=== PATIENT | male | born 1940 | race Caucasian/White ===

== ENCOUNTER 2017-07-21 09:31 | Emergency (ER) | payer MEDICARE, OTHER ==
[~2017-07-21] VITALS: Ht 182.9 cm; Wt 122.5 kg
[~2017-07-21 09:31] MED LIST: AMLO10 PO; ASPI325 PO; ATOR10 PO; ATOR20 PO; BENA20 PO; Colace100 MG; DOCU100 PO; ENOX40I SC; GLIP10 PO; HYDACE10B PO; Humalog100 UNIT/1; IBUP800; INSUASPI SC; LAVAP17G PO; LEVFLO500; LISI20 PO; LOSARTAN-HCTZ1 EAC1 PO; METF500 PO; METO25ER PO; METO50ER PO; MORP15ER; Novolog100 UNIT/2 SC; OMEP20ER PO; OXYC5 PO; PIOG45 PO; Senokotxtra17.2 MG PO; WARF4 PO
[2017-07-21 10:33] LABS: BASOPHILS ABSOLUTE AUTO 0.05 K/mm3 (0.00-0.23); BASOPHILS PERCENT AUTO 1 % (0-2); EOSINOPHILS ABSOLUTE AUTO 0.21 K/mm3 (0.00-0.68); EOSINOPHILS PERCENT AUTO 3 % (0-6); Hematocrit 40.9 % (37.0-53.0); Hemoglobin 13.9 g/dL (13.5-17.5); IMMATURE GRAN ABSOLUTE AUTO 0.01 K/mm3 (0.00-0.10); IMMATURE GRAN PERCENT AUTO 0 % (0-1); LYMPHOCYTES PERCENT AUTO 22 % (21-46); MONOCYTES PERCENT AUTO 10 % (4-13); Mean Corpuscular HGB 30.8 pg (26.0-34.0); Mean Corpuscular Volume 91 fL (80-100); Mean Platelet Volume 10.5 fL (9.1-12.4); NEUTROPHILS PERCENT AUTO 65 % (41-73); Platelet Count 221 K/mm3 (150-400); RDW Standard Deviation 42.8 fL (35.1-46.3); Red Blood Cell Count 4.52 M/mm3 (4.30-5.90); White Blood Cell Count 7.37 K/mm3 (4.00-11.30)
[2017-07-21 10:53] LABS: Alanine Aminotransfer (ALT/SGP 38 U/L (12-78); Albumin, Blood 3.7 g/dL (3.4-5.0); Alk Phos 94 U/L (50-136); Anion Gap 6 mmol/L (6-16); Aspartate Aminotrans (AST/SGOT 21 U/L (12-37); Bilirubin, Total 0.5 mg/dL (0.1-1.0); Blood Urea Nitrogen 12 mg/dL (8-24); Bun/Creatinine Ratio 16.7 (12.0-20.0); CO2, Blood 28 mmol/L (21-32); Calcium, Blood 8.8 mg/dL (8.5-10.1); Chloride, Blood 107 mmol/L (98-108); Creatinine, Blood 0.72 mg/dL (0.60-1.20); Globulin, Blood 3.7 g/dL (2.2-4.0); Glomerular Filtration Rate >60 (60-); Glucose, Blood 90 mg/dL (70-99); Potassium, Blood 3.6 mmol/L (3.5-5.5); Sodium, Blood 141 mmol/L (136-145); Total Protein, Blood 7.4 g/dL (6.4-8.2)
[2017-07-21 11:01] LABS: Troponin I <0.015 ng/mL (0.000-0.040)
[2017-07-21] MEDS ORDERED: HUMULIN 70100 UNIT/2 SC ×2 (11:10→11:11)
[2017-07-21] MEDS ORDERED: LOSARTAN-HCTZ1 EAC1 PO (11:12)
[2017-07-21] MEDS ORDERED: FURO40 PO (11:12)
[2018-02-07] MEDS ORDERED: METF500C PO (11:05)
[2018-02-07] MEDS ORDERED: ASPI325 PO (11:05)
[2018-02-07] MEDS ORDERED: TUMS300 MG PO (11:06)
== END 2017-07-21 11:30 | disposition home or self-care (01) ==
LOC: ER 09:31
PROVIDERS: Internal Medicine
DX: R07.89 Other chest pain (principal); Z79.899 Other long term (current) drug therapy; Z79.4 Long term (current) use of insulin; E11.9 Type 2 diabetes mellitus without complications; I10 Essential (primary) hypertension; Z86.73 Personal history of transient ischemic attack (TIA), and cerebral infarction without residual deficits
CPT/HCPCS: 36415; 71046; 80053; 83880; 84484; 85025; 93005; 93010; 99284

== ENCOUNTER → 2017-08-25 | Outpatient (CLI) | payer MEDICARE, OTHER ==
[~2017-08-25] MED LIST changes: +FURO40 PO; +HUMULIN 70100 UNIT/2 SC; +METF500C PO; +TUMS300 MG PO
== END | disposition home or self-care (01) ==
LOC: LAB SHORT 13:52 → PLD 13:52
DX: D22.5 Melanocytic nevi of trunk (principal)
CPT/HCPCS: 88305

== ENCOUNTER → 2018-06-20 | Outpatient (CLI) | payer MEDICARE, OTHER | END | disposition home or self-care (01) | LOC: PLD 12:20 → LAB SHORT 12:20 | DX: C44.310 Basal cell carcinoma of skin of unspecified parts of face (principal) | CPT/HCPCS: 88305 ==

== ENCOUNTER → 2018-07-10 | Outpatient (CLI) | payer MEDICARE, OTHER | END | disposition home or self-care (01) | LOC: LAB SHORT 14:13 → PLD 14:13 | DX: C44.310 Basal cell carcinoma of skin of unspecified parts of face (principal) | CPT/HCPCS: 88305 ==

== ENCOUNTER 2019-02-13 07:30 | Inpatient (IN) | payer MEDICARE, OTHER ==
[~2019-02-13] VITALS: Ht 185.4 cm; Wt 130.6 kg
[~2019-02-13 07:30] MED LIST changes: +CALCIUM MAG ZINC PO; +Novolog100 UNIT/1 SC
--- NOTE | 2019-02-27 09:34 | NUR ---
History, Chart, Medications and Allergies reviewed before start of procedure. Patient confirms NPO status and agrees with scheduled surgery.
--- NOTE | 2019-02-27 09:53 | NUR ---
DENTURES LEFT AT HOME PER PATIENT.
--- NOTE | 2019-02-27 10:34 | NUR ---
UP TO BR TO VOID.
--- NOTE | 2019-02-27 15:42 | NUR ---
POST OP: REPORT RECIEVED FROM SULY, DESK ASSISTANT. PT TO UNIT AT ABOUT 1440. UPON ASSESSMENT PT IS IN NO VISABLE DISTRESS, A/O. VSS. PT REPORTS FULL SENSATION IN LLE, DENIES PAIN. SURGICAL SITE WNL. ABLE TO SIT UP AND TAKE SIPS OF WATER. WILL CTM
--- NOTE | 2019-02-27 19:19 | NUR ---
SUMMARY: NO ACUTE CHANGE SINCE ADMISSION. PT A/O, VSS. PT ABLE TO WALK WITH PHYSICAL THERAPY, DID REPORT SOME NAUSEA WITH MOVEMENT AND THERAPY. NO EMESIS. SURGICAL SITE HAS SMALL AMOUNT OF SHADOWING, WILL CTM AND MAKE JONA BUSH AWARE. PT ABLE TO EAT DINNER, BUT THEN BECAME NAUSEATED AT ABOUT 1830 WHEN UP TO VOID, EMESIS 700ML. PT REPORTS MINIMAL PAIN A L HIP, SEEMS TO BE MANAGED WELL WITH 5MG OXYCODONE. NO ACUTE SAFETY CONCERNS AT THIS TIME, REPORT GIVEN TO JONA TANG RN.
[2019-02-28 04:04] LABS: BASOPHILS ABSOLUTE AUTO 0.03 K/mm3 (0.00-0.23); BASOPHILS PERCENT AUTO 0 % (0-2); EOSINOPHILS ABSOLUTE AUTO 0.15 K/mm3 (0.00-0.68); EOSINOPHILS PERCENT AUTO 2 % (0-6); Hematocrit 35.1 % (37.0-53.0); Hemoglobin 11.5 g/dL (13.5-17.5); IMMATURE GRAN ABSOLUTE AUTO 0.02 K/mm3 (0.00-0.10); IMMATURE GRAN PERCENT AUTO 0 % (0-1); LYMPHOCYTES ABSOLUTE AUTO 1.09 K/mm3 (0.84-5.20); LYMPHOCYTES PERCENT AUTO 13 % (21-46); MONOCYTES ABSOLUTE AUTO 0.77 K/mm3 (0.16-1.47); MONOCYTES PERCENT AUTO 9 % (4-13); Mean Corpuscular HGB 30.2 pg (26.0-34.0); Mean Corpuscular HGB Conc 32.8 g/dL (31.5-36.5); Mean Corpuscular Volume 92 fL (80-100); Mean Platelet Volume 10.5 fL (9.1-12.4); NEUTROPHILS PERCENT AUTO 76 % (41-73); Platelet Count 190 K/mm3 (150-400); RDW Coefficient Variation 12.5 % (11.7-14.2); RDW Standard Deviation 42.1 fL (35.1-46.3); Red Blood Cell Count 3.81 M/mm3 (4.30-5.90); White Blood Cell Count 8.66 K/mm3 (4.00-11.30)
[2019-02-28 04:29] LABS: Anion Gap 5 mmol/L (6-16); Blood Urea Nitrogen 12 mg/dL (8-24); CO2, Blood 29 mmol/L (21-32); Calcium, Blood 8.2 mg/dL (8.5-10.1); Chloride, Blood 103 mmol/L (98-108); Creatinine, Blood 0.67 mg/dL (0.60-1.20); Glomerular Filtration Rate >60 (60-); Glucose, Blood 157 mg/dL (70-99); Magnesium, Blood 1.7 mg/dL (1.6-2.4); Potassium, Blood 3.6 mmol/L (3.5-5.5); Sodium, Blood 137 mmol/L (136-145)
--- NOTE | 2019-02-28 04:43 | NUR ---
SHIFT SUMMARY: PT POD#1 FOR LEFT TOTAL HIP. AQUACEL DRESSING CHANGED IN BEGINNING OF SHIFT. PAIN MANAGED WITH TORADOL AND TYLENOL. USING URINAL T/O SHIFT AND VOIDING WELL. PT 1 ASSIST TO BATHROOM W/FWW. 25% WB TO LLE. VOIDING WELL. NICOLA PO. DENIES N/V. ABX COMPLETE. SALINE LOCKED.
[2019-02-28] MEDS ORDERED: Percocet 5-3251 EACH PO (15:53)
--- NOTE | 2019-02-28 16:38 | NUR ---
DISCHARGE SUMMARY PT A&OX4, VSS, LEFT FLOOR VIA WC WITH RN, TO GO HOME WITH , WITH ALL PERSONAL POSSESSIONS INCLUDING DISCHARGE PACKET AND 1 NARC SCRIPT. DC INSTRUCTIONS PROVIDED. PT REP UNDERSTANDING THOSE INSTRUCTIONS INCLUDING SHOWER OK, NO TUB/JACUZZI, CHANGE DRESSINGS ON SUNDAYS UNTIL FU WITH SURGEON 2 WKS, FOLLOW OUT PT PT. IV DC'D.
== END 2019-02-28 16:15 | disposition home or self-care (01) | DRG 470 ==
LOC: SURS 02-27 09:14 → PRE IP 02-27 11:00 → SURS 02-27 15:16
PROVIDERS: ADMIT Orthopaedic Surgery
PROC: 0SRB02A Replacement of Left Hip Joint with Metal on Polyethylene Synthetic Substitute, Uncemented, Open Approach (ICD-10-PCS; principal; 2019-02-27 11:00)
DX: M16.12 Unilateral primary osteoarthritis, left hip (principal); E11.42 Type 2 diabetes mellitus with diabetic polyneuropathy; G47.30 Sleep apnea, unspecified; I10 Essential (primary) hypertension; M17.12 Unilateral primary osteoarthritis, left knee; E11.9 Type 2 diabetes mellitus without complications; E78.5 Hyperlipidemia, unspecified; Z86.718 Personal history of other venous thrombosis and embolism; Z79.84 Long term (current) use of oral hypoglycemic drugs; Z79.82 Long term (current) use of aspirin; Z79.4 Long term (current) use of insulin; Z79.899 Other long term (current) drug therapy; I25.10 Atherosclerotic heart disease of native coronary artery without angina pectoris; E66.9 Obesity, unspecified; Z68.38 Body mass index [BMI] 38.0-38.9, adult
CPT/HCPCS: 36415; 72170; 80048; 82947; 83735; 85025; 86850; 86900; 86901; 88300; 97110; 97116; 97162; 97166; 97530; 97535; C1713; C1776; J0171; J0690; J0735; J1815; J1885; J2250; J2270; J2405; J2704; J2765; J2795; J3010; J7120

== ENCOUNTER → 2019-11-06 | Outpatient (CLI) | payer MEDICARE, BC ==
[~2019-11-06] MED LIST changes: +Percocet 5-3251 EACH PO
== END | disposition home or self-care (01) ==
LOC: PLD 09:04 → LAB SHORT 09:04
DX: C44.41 Basal cell carcinoma of skin of scalp and neck (principal)
CPT/HCPCS: 88305

== ENCOUNTER → 2021-09-08 | Outpatient (CLI) | payer MEDICARE, BC | END | disposition home or self-care (01) | LOC: LAB SHORT 12:16 | DX: D04.5 Carcinoma in situ of skin of trunk (principal); C44.319 Basal cell carcinoma of skin of other parts of face | CPT/HCPCS: 88305 ==

== ENCOUNTER → 2022-03-09 | Outpatient (CLI) | payer MEDICARE, BC ==
[~2022-03-09] MED LIST changes: +METHOTREXATE2.5 M9 PO; +NEBI5 PO
== END | disposition home or self-care (01) ==
LOC: LAB SHORT 12:17
DX: D09.8 Carcinoma in situ of other specified sites (principal); C44.42 Squamous cell carcinoma of skin of scalp and neck
CPT/HCPCS: 88305

== ENCOUNTER 2022-04-13 14:52 | Inpatient (IN) | payer MEDICARE, BC ==
[~2022-04-13] VITALS: Ht 182.9 cm; Wt 122.5 kg
[2022-04-13 16:17] LABS: BASOPHILS ABSOLUTE AUTO 0.07 K/mm3 (0.00-0.23); BASOPHILS PERCENT AUTO 1 % (0-2); EOSINOPHILS ABSOLUTE AUTO 0.26 K/mm3 (0.00-0.68); EOSINOPHILS PERCENT AUTO 2 % (0-6); Hematocrit 44.5 % (37.0-53.0); Hemoglobin 15.1 g/dL (13.5-17.5); IMMATURE GRAN ABSOLUTE AUTO 0.04 K/mm3 (0.00-0.10); IMMATURE GRAN PERCENT AUTO 0 % (0-1); LYMPHOCYTES ABSOLUTE AUTO 1.38 K/mm3 (0.84-5.20); LYMPHOCYTES PERCENT AUTO 12 % (21-46); MONOCYTES ABSOLUTE AUTO 1.08 K/mm3 (0.16-1.47); MONOCYTES PERCENT AUTO 9 % (4-13); Mean Corpuscular HGB 31.2 pg (26.0-34.0); Mean Corpuscular HGB Conc 33.9 g/dL (31.5-36.5); Mean Corpuscular Volume 92 fL (80-100); Mean Platelet Volume 9.9 fL (9.1-12.4); NEUTROPHILS ABSOLUTE AUTO 9.11 K/mm3 (1.96-9.15); NEUTROPHILS PERCENT AUTO 76 % (41-73); Platelet Count 312 K/mm3 (150-400); RDW Standard Deviation 43.6 fL (35.1-46.3); Red Blood Cell Count 4.84 M/mm3 (4.30-5.90); White Blood Cell Count 11.94 K/mm3 (4.00-11.30)
[2022-04-13 16:22] LABS: Influenza A, PCR NEGATIVE (NEGATIVE); Influenza B, PCR NEGATIVE (NEGATIVE); Resp Syncytial Virus, PCR NEGATIVE (NEGATIVE); SARS-Cov-2 (COVID-19) PCR, MMC NEGATIVE (NEGATIVE)
[2022-04-13 16:39] LABS: Albumin, Blood 3.3 g/dL (3.4-5.0); Albumin/Globulin Ratio 0.8 (0.8-1.8); Bilirubin, Total 0.3 mg/dL (0.1-1.0); Bun/Creatinine Ratio 16.8 (12.0-20.0); Calcium, Blood 9.5 mg/dL (8.5-10.1); Creatinine, Blood 0.78 mg/dL (0.60-1.20); Globulin, Blood 3.9 g/dL (2.2-4.0); Potassium, Blood 3.9 mmol/L (3.5-5.5); Total Protein, Blood 7.2 g/dL (6.4-8.2)
[2022-04-13] MEDS ORDERED: CENTRUM SILVER1 EAC2 PO (18:23)
[2022-04-13] MEDS ORDERED: FOLI1 PO (18:23)
--- NOTE | 2022-04-13 21:15 | NUR ---
PT ADMITED FROM ED, BPS ELEVATED. COMPLETING HOME MED LIST AND WILL CALL MD TO SEE IF HE WOULD LIKE TO START HOME MEDS HERE OR ORDER PRN. PT OTHERWISE STABLE. SOB WITH ACTIVY. DESATING TO HIGH 80S. RECOVERING QUICKLY WITH REST AND WITHOUT SUPPLIMENTAL O2.
[2022-04-14 00:07] LABS: Bilirubin, Urine Neg (Neg); Blood, Urine 1+ (Neg); Glucose Qualitative, Urine Neg (Neg); Ketones, Urine 1+ (Neg); Leukocyte Esterase, Urine Neg (Neg); Nitrite, Urine Neg (Neg); Protein, Urine 2+ (Neg); Source, Urine Foley catheter; Urobilinogen, Urine NORM (Normal)
[2022-04-14 01:17] LABS: Appearance, Urine Clear (Clear); Color, Urine Yellow (P-Yellow)
[2022-04-14 01:18] LABS: Bacteria Few /hpf; Squamous Epithelial Cells Rare /hpf (Few)
--- NOTE | 2022-04-14 01:38 | NUR ---
CHASE PLACED AT 0000 DUE TO RETENTION. ORDER IN PLACE.
--- NOTE | 2022-04-14 04:16 | NUR ---
PT SLEEPING WELL OVERNIGHT. PT BECOMING ANXIOUS X1 TONIGHT, ABLE TO CALM PT DOWN WITH DISTRACTIONS AND COMMUNICATION. VSS AFTER PRN HYDRALAZINE GIVEN. CHASE PLACED DUE TO RETENTION. BLADDER SCAN SHOWED 600MLS. CHASE DRAINING WELL TO GRAVITY. CPAP ON OVER NIGHT, NO SOB WITH REST.
[2022-04-14 04:38] LABS: BASOPHILS ABSOLUTE AUTO 0.07 K/mm3 (0.00-0.23); BASOPHILS PERCENT AUTO 1 % (0-2); EOSINOPHILS ABSOLUTE AUTO 0.16 K/mm3 (0.00-0.68); EOSINOPHILS PERCENT AUTO 2 % (0-6); Hematocrit 44.3 % (37.0-53.0); Hemoglobin 14.7 g/dL (13.5-17.5); IMMATURE GRAN ABSOLUTE AUTO 0.03 K/mm3 (0.00-0.10); IMMATURE GRAN PERCENT AUTO 0 % (0-1); LYMPHOCYTES ABSOLUTE AUTO 1.21 K/mm3 (0.84-5.20); LYMPHOCYTES PERCENT AUTO 11 % (21-46); MONOCYTES ABSOLUTE AUTO 0.89 K/mm3 (0.16-1.47); MONOCYTES PERCENT AUTO 8 % (4-13); Mean Corpuscular HGB 30.8 pg (26.0-34.0); Mean Corpuscular HGB Conc 33.2 g/dL (31.5-36.5); Mean Corpuscular Volume 93 fL (80-100); Mean Platelet Volume 10.5 fL (9.1-12.4); NEUTROPHILS ABSOLUTE AUTO 8.39 K/mm3 (1.96-9.15); NEUTROPHILS PERCENT AUTO 78 % (41-73); Platelet Count 286 K/mm3 (150-400); RDW Standard Deviation 43.9 fL (35.1-46.3); Red Blood Cell Count 4.78 M/mm3 (4.30-5.90); White Blood Cell Count 10.75 K/mm3 (4.00-11.30)
[2022-04-14 04:59] LABS: Albumin, Blood 2.9 g/dL (3.4-5.0); Albumin/Globulin Ratio 0.8 (0.8-1.8); Bilirubin, Total 0.5 mg/dL (0.1-1.0); Bun/Creatinine Ratio 15.3 (12.0-20.0); Calcium, Blood 8.8 mg/dL (8.5-10.1); Creatinine, Blood 0.65 mg/dL (0.60-1.20); Globulin, Blood 3.7 g/dL (2.2-4.0); Potassium, Blood 3.9 mmol/L (3.5-5.5); Total Protein, Blood 6.6 g/dL (6.4-8.2)
[2022-04-14 05:13] LABS: International Normalized Ratio 1.04; Prothrombin Time Results 10.9 Sec (9.7-11.5)
[2022-04-14 11:41] LABS: CPK Creatine Kinase 106 U/L (39-308)
--- NOTE | 2022-04-14 18:19 | NUR ---
SHIFT SUMMARY PT IS ALERT AND ORIENTED X 4, HE IS HARD OF HEARING. SPO2 MAINTAINED >95% VIA CPAP. WHEN PT WOULD AMBULATE TO CHAIR/COMMODE 2L BLEED IN CPAP APPLIED. HR STABLE, BP WAS ELEVATED THIS AM, SEE EMAR FOR MANAGEMENT. HE DENIED CHEST PAIN/PRESSURE BUT WAS DYSPNEIC W/ MINIMAL EXERTION. CHASE CATHETER IS IN PLACE AND DRAINING RED COLORED OUTPUT TO GRAVITY, DR. MUÑOZ MADE AWARE. OF RED COLORED OUTPUT. IV IN LEFT AC IS SALINE LOCKED. PT IS NOW SITTING IN RECLINER VISITING W/ KYLAH. CALL LIGHT IS WITHIN REACH.
--- NOTE | 2022-04-15 04:30 | NUR ---
SHIFT SUMMARY: PT REMAINS ALERT AND ORIENTED X3, MILDLY FORGETFUL. ABLE TO FOLLOW COMMANDS AND MAKE NEEDS KNOWN. AFEBRILE, HR SINUS RHYTHYM 90'S, BP STABLE, PT ON CPAP THROUGHOUT THE NIGHT WITH 2 LITER BLEED IN SATING >94%. RESPIRATIONS EVEN AND UNLABORED AT REST. SOB WITH EXERTION. STRENGTH EQUAL BILATERALLY. PULSES STRONG AND EQUAL. PT SLEPT IN RECLINER A MAJORITY OF THE NIGHT. UP TO BSC VIA ONE PERSON ASSIST MUTIPLE TIMES, NO BM. CHAES CATH IN PLACE DRAINING RED TINGED URINE TO GRAVITY. PLAN FOR THORACENTESIS 04/15. BED IN LOW, ALARM ON, CALL LIGHT IN REACH. WILL REPORT TO ONCOMING RN.
[2022-04-15 09:35] LABS: Automated BF RBC Count 0.061 M/mm3 (0-0); Automated BF WBC Count 1.332 K/mm3 (0-999)
[2022-04-15 09:46] LABS: Body Fluid WBC Count 1332 /mm3 (0-999); RBC Count, Body Fluid 61000 /mm3 (0-0)
[2022-04-15 09:55] LABS: Protein, Body Fluid 4.2 g/dL
[2022-04-15 10:16] LABS: Triglycerides, Body Fluid 40 mg/dL
[2022-04-15 10:17] LABS: Albumin, Body Fluid 2.6 g/dL
[2022-04-15 10:24] LABS: Lactate Dehydrogenase, Body Fl 762 U/L
[2022-04-15 11:15] LABS: Appearance, Body Fluid Cloudy (Clear); Color, Body Fluid Red (None-Yellow); Total Cell Count, Body Fluid 100
--- NOTE | 2022-04-15 14:43 | NUR ---
CARE NOTE PT IS ALERT TO NAME, PLACE, SITUATION AND TIME BUT CANNOT RECALL BIRTHDATE. PT JOSE MANUEL EXPRESSED SOME CONCERNS REGARDING HIS FORGETFULLNESS. DR. MUÑOZ MADE AWARE.
--- NOTE | 2022-04-15 16:14 | NUR ---
TRANSFER NOTE REPORT GIVEN TO JOSLYN BUSH ON MEDICAL FLOOR. PT TRANSFERED TO ROOM 325 BY THIS RN VIA WHEELCHAIR, VSS. HE WAS TRANSFERED ON 1L VIA NC. JOSE MANUEL WENT W/ PT TO MEDICAL FLOOR ALONG WITH ALL OF PT BELONGINGS. PT LEFT PCU APPROX. 1600.
--- NOTE | 2022-04-15 18:59 | NUR ---
SHIFT SUMMARY PATIENT IS ALERT AND ORIENTED. PATIENT HAS HAD NO ACUTE EVENTS SINCE TRANSFER. VITAL SIGNS REVIEWED.
--- NOTE | 2022-04-16 05:57 | NUR ---
SHIFT SUMMARY PATIENT ALERT AND ORIENTED X3-4, OCCASIONAL CONFUSION AND FORGETFULNESS NOTED. PATIENT HAD NO COMPLAINTS OF PAIN OR SHORTNESS OF BREATH. NO ACUTE ISSUES NOTED OVERNIGHT. CALL LIGHT WITHIN REACH. REPORT GIVEN TO ONCOMING RN.
--- NOTE | 2022-04-16 10:27 | NUR ---
RN NOTE MR HERNANDEZ IS ORIENTATED TO HIS NAME, TO [facility], NOT TO DATE. GENERAL INTERMITTANT CONFUSED AND FORGETFUL CONVERSATION. HE WAS DISTURBED THAT HE COULD NOT REMEMBER HIS BIRTHDATE. SEEMS TO HAVE SOME SOB ON ACTIVITY/TALKING, BUT O2 SATS IN THE 90S ON 1L NC AND TALKING IN FULL SENTENCES. ROOM AIR TRIAL PRESENTLY. AT BEDSIDE. HE STILL HAS CHASE CATHETER IN PLACE. HIS SAID THAT AT HOME HE NEEDS TO STAND OUTSIDE IN THE COLD TO BE ABLE TO URINATE. DENIES ANY PAIN. BANDAID LEFT LOWER BACK C,D,I. IN CHAIR, CHAIR ALARM IN USE. CALL LIGHT IN REACH.
--- NOTE | 2022-04-16 15:47 | NUR ---
Received notification from GILA Casiano RN, that pt and his received a new diagnosis of a malignant pleural effusion this morning. Spoke with Dr. King who states further testing is needed before talking with pt about advanced care planning. Spoke with chaplain Humberto, who will visit with pt and his this afternoon. PC to plan to offer supportive visits to build rapport. Once testing is completed, will plan to discuss options for care. Updated Stephenie in CM and bedside nursing.
--- NOTE | 2022-04-16 16:11 | NUR ---
SHIFT SUMMARY SEE PRIOR NOTE. VISITING WITH MR HERNANDEZ MOST OF THE DAY. GIVEN NEW DIAGNOSIS OF LEFT LUNG MALIGNANCY THIS MORNING. PALIATIVE CARE NOW INVOLVED, PETROPHYSICIST IN THE ROOM CURRENTLY. BLOOD SUGARS HAVE BEEN HIGH, 315 BEFORE LUNCH. COVERED WITH SLIDING SCALE INSULIN. HE DID WELL ON ROOM AIR AND SATS IN THE 90S, THEN REQUESTED OXYGEN BACK ON AFTER WALKING IN THE HALLWAYS, SAT AT THIS POINT WAS 89-91% BUT PT MORE COMFORTABLE WITH IT ON. BED LOW, CALL LIGHT IN REACH. BED AND CHAIR ALARMS USED.
--- NOTE | 2022-04-16 16:44 | NUR ---
"Spiritual Care | Nurse Request Pt. is sitting up in a recliner, and spouse is present. Pt. is unsetteled by a recent diagnosis. Listen empathetically with a calming presence. Pt. displays evidence of a strong valente. Establish mulitple layers af rapport. Pt. displayed a countenance of hope. Prayed with the couple. Both Pt. and spouse verbalize gratitude for the spiritual care visit."
--- NOTE | 2022-04-17 04:37 | NUR ---
SHIFT SUMMARY 81 YR M ADMITTED ON 04/13/22 FOR LEFT PLEURAL EFFUSION. FULL CODE. NO ACUTE CHANGES THIS SHIFT. PT HAS BEEN VERY PLEASANT AND THANKFUL FOR THE CARE HE HAS RECEIVED. HE DID NOT SPEAK ABOUT HIS RECENT DX AND HE APPEARED TO BE COMFORTABLE. HE PREFERS TO KEEP O2 ON BY WAY OF NC. HE REFUSED THE CPAP W/ RT. SATS HAVE REMAINED CONSISTENT IN THE 90'S. HE HAS HAD NO C/O PAIN THIS SHIFT. HE DID STATE THAT HE WAS HAVING TROUBLE SLEEPING AND WAS GIVEN MELATONIN PER EMAR. HE HAS SLEPT OFF AND ON THIS SHIFT.
--- NOTE | 2022-04-17 12:10 | NUR ---
RN NOTE MR HERNANDEZ IS ALERT, ORIENTATED TO SELF, HOSPITAL, NOT DATE, VERY FORGETFUL OF RECENT EVENTS. FAMILY AT BEDSIDE. RESP RATE 28 PER MINUTE, HE LOOKS TO BE HAVING WORK OF BREATHING THOUGH SATS HAVE BEEN IN THE 90S ON CONTINUOUS PULSE OX. HE WAS ON 1L NC, OXYGEN REMOVED TO ASSESS NEED FOR DISCHARGE. CHASE CATHETER REMOVED AT NOON. PER PT HAS HAD PROBLEMS WITH URINARY RETENTION PRIOR TO ADMISSION. BLOOD GLUCOSE HAS BEEN ELEVATED. DR TOMLINSON AWARE OF BLOOD GLUCOSE AND RESP RATE. CXR DONE AT BEDSIDE. PLAN FOR POSSIBLE DISCHARGE HOME TODAY. PT HAS BEEN AMBULATING WITH 1 PERSON STAND BY ASSIST, GAIT BELT AND WALKER. BED AND CHAIR ALARMS IN USE
[2022-04-17] MEDS ORDERED: CARV3.125 PO (16:59)
--- NOTE | 2022-04-17 17:55 | NUR ---
DISCHARGE NOTE MR HERNANDEZ HAD HOME O2 EVALUATION DONE BY RT. HOME OXYGEN DEEMED NEEDED AT 4L WITH ACTIVITY. SALES REPRESENTATIVE GRAPHIC ART ORDERED HOME OXYGEN AND REQUESTED HOSPITAL BED PER 'S REQUEST. [employer] BROUGHT OXYGEN AND LOADED IT INTO 'S CAR. BED DELIVERY SCHEDULED FOR TUESDAY. PIV REMOVED. VERBALISED GOOD UNDERSTANDING OF WRITTEN AND VERBAL DISCHARGE INSTRUCTIONS. PT'S WANTED TO DO BLOOD GLUCOSE CHECK AND HAVE SUPPER AT HOME AND WANTED TO DO EVENING MEDS ONCE HOME. PT DID NOT VOID SINCE CHASE CATHETER REMOVED AT NOON. PT FELT NO NEED TO VOID, PT AND FEEL COMFORTABLE TO DISCHARGE HOME AND HAVE PT STAND OUTSIDE TO URINATE LIKE HE DID TO BE ABLE TO VOID PRE ADMISSION AND SAID THEY DID NOT WISH TO DELAY THE DISCHARGE. WHEELCHAIR ESCORT TO 'S VEHICLE AT 1745HRS.
== END 2022-04-17 17:53 | disposition home or self-care (01) | DRG 180 ==
LOC: ER 14:52 → PCU 20:01 → MEDS 20:01 → PCU 20:25 → MEDS 04-15 16:23
PROVIDERS: Physician Assistant; ADMIT Internal Medicine
PROC: 5A09357 Assistance with Respiratory Ventilation, Less than 24 Consecutive Hours, Continuous Positive Airway Pressure (ICD-10-PCS; 2022-04-14)
PROC: 0W9B3ZZ Drainage of Left Pleural Cavity, Percutaneous Approach (ICD-10-PCS; principal; 2022-04-15)
DX: C34.92 Malignant neoplasm of unspecified part of left bronchus or lung (principal); J96.01 Acute respiratory failure with hypoxia; J91.0 Malignant pleural effusion; J43.9 Emphysema, unspecified; I10 Essential (primary) hypertension; E78.00 Pure hypercholesterolemia, unspecified; Z51.5 Encounter for palliative care; G47.33 Obstructive sleep apnea (adult) (pediatric); Z96.642 Presence of left artificial hip joint; Z96.653 Presence of artificial knee joint, bilateral; I25.10 Atherosclerotic heart disease of native coronary artery without angina pectoris; E11.649 Type 2 diabetes mellitus with hypoglycemia without coma; Z20.822 Contact with and (suspected) exposure to COVID-19; N40.0 Benign prostatic hyperplasia without lower urinary tract symptoms; L40.9 Psoriasis, unspecified; M19.90 Unspecified osteoarthritis, unspecified site; I25.2 Old myocardial infarction; Z99.81 Dependence on supplemental oxygen; Z86.73 Personal history of transient ischemic attack (TIA), and cerebral infarction without residual deficits; Z87.442 Personal history of urinary calculi; Z98.890 Other specified postprocedural states; Z90.49 Acquired absence of other specified parts of digestive tract; Z79.899 Other long term (current) drug therapy; Z79.84 Long term (current) use of oral hypoglycemic drugs; Z79.02 Long term (current) use of antithrombotics/antiplatelets; Z79.4 Long term (current) use of insulin; Z79.82 Long term (current) use of aspirin; Z87.891 Personal history of nicotine dependence
CPT/HCPCS: 0241U; 32555; 36415; 71045; 71046; 71250; 80053; 81001; 82042; 82550; 82947; 83615; 83880; 84157; 84478; 84484; 85025; 85610; 85730; 89051; 93005; 93010; 93306; 94660; 94762; 96365; 96372-59; 96375; 97161; 97530; 99285-25; A9270; J0360; J0456; J0696; J1650; J1815; J7050; J8610

== ENCOUNTER 2022-05-04 07:38 | Inpatient (IN) | payer MEDICARE, BC ==
[~2022-05-04 07:38] MED LIST changes: +CARV3.125 PO; +CENTRUM SILVER1 EAC2 PO; +FOLI1 PO
== END 2022-05-04 14:46 | DRG 208 ==
DX: J96.01 Acute respiratory failure with hypoxia (principal); G92.8 Other toxic encephalopathy; C34.92 Malignant neoplasm of unspecified part of left bronchus or lung; J91.0 Malignant pleural effusion; R65.10 Systemic inflammatory response syndrome (SIRS) of non-infectious origin without acute organ dysfunction; Z68.41 Body mass index [BMI] 40.0-44.9, adult; J98.11 Atelectasis; J96.02 Acute respiratory failure with hypercapnia; Z66 Do not resuscitate; E87.5 Hyperkalemia; Z51.5 Encounter for palliative care; E11.9 Type 2 diabetes mellitus without complications; I10 Essential (primary) hypertension; E78.5 Hyperlipidemia, unspecified; G47.33 Obstructive sleep apnea (adult) (pediatric); L40.9 Psoriasis, unspecified; E66.01 Morbid (severe) obesity due to excess calories; M19.90 Unspecified osteoarthritis, unspecified site; D72.829 Elevated white blood cell count, unspecified; N40.0 Benign prostatic hyperplasia without lower urinary tract symptoms; Z87.442 Personal history of urinary calculi; Z79.4 Long term (current) use of insulin; Z99.81 Dependence on supplemental oxygen; Z90.49 Acquired absence of other specified parts of digestive tract; Z96.652 Presence of left artificial knee joint; Z98.890 Other specified postprocedural states; Z79.899 Other long term (current) drug therapy; Z79.82 Long term (current) use of aspirin; Z79.84 Long term (current) use of oral hypoglycemic drugs; Z79.02 Long term (current) use of antithrombotics/antiplatelets